=== PATIENT | female | born 1970 | race Caucasian/White ===

== ENCOUNTER 2017-02-15 20:50 | Emergency (ER) | payer OTHER, MEDICAID ==
[~2017-02-15] VITALS: Ht 175.3 cm; Wt 117.9 kg
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
[2017-02-15] MEDS ORDERED: FLEXERIL10 MG PO (22:09)
[2017-02-15] MEDS ORDERED: MOBIC15 MG PO (22:09)
[2017-02-15 22:20] VITALS: BP 146/76
--- NOTE | 2017-02-16 08:05 | RADIOLOGY REPORT PS360 ---
HIP RT 2-3V W/PELVIS IF PERFOR HISTORY: HIP PAIN ORDERING PHYSICIAN: Jaky Resendiz MD PATIENT AGE: 47 years COMPARISON: None FINDINGS: No fracture or dislocation is evident. Minimal osteoarthritic changes involving the hips.. No lytic or blastic change. Unremarkable soft tissues IMPRESSION: No acute finding
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
== END 2017-02-15 22:20 | disposition home or self-care (01) ==
LOC: ER 20:50
DX: S16.1XXA Strain of muscle, fascia and tendon at neck level, initial encounter (principal); S39.012A Strain of muscle, fascia and tendon of lower back, initial encounter; S73.101A Unspecified sprain of right hip, initial encounter; V89.2XXA Person injured in unspecified motor-vehicle accident, traffic, initial encounter

== ENCOUNTER 2017-07-12 10:05 | Emergency (ER) | payer MEDICAID ==
[~2017-07-12] VITALS: Ht 175.3 cm; Wt 131.5 kg
[~2017-07-12 10:05] MED LIST: FLEXERIL10 MG PO; MOBIC15 MG PO
[2017-07-12] MEDS ORDERED: AUGMENTIN 875-1 EACH PO (11:41)
[2017-07-12] MEDS ORDERED: TESSALON PERLE100 M1 PO (11:42)
--- NOTE | 2017-07-12 11:42 | Emergency Room Report ---
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 N Clinical Suspician of Infection? N Mental Status: 1 - Regular (Normal Baseline) Sepsis Risk:Low Sepsis Risk Have you (or family members/close friends) recently traveled outside the [place]? N If Yes, where/when: Have you had exposure to infectious disease within the past month? TB? Other? Specify: Source patient, RN notes reviewed, RN/MD Exam Limitations no limitations Comment This is a 47-year-old feel patient presented emergency room with chest wall and anterior abdominal wall discomfort after being congested for the past one week, with a nonproductive cough. She is concerned that she could have developed a hernia, as well as anterior abdominal wall hurts worse with coughing. Patient has any shortness of breath, fever, nausea, vomiting or diarrhea. Patient had ovarian cancer in the past, currently in remission. ALLERGIES Coded Allergies: codeine (07/12/17) Home Medications Active Scripts Cyclobenzaprine Hcl (Flexeril) 10 MG PO TID #15 TAB Prov: 02/15/17 Meloxicam (Mobic 15MG) 15 MG PO DAILY #10 TAB Prov: 02/15/17 History Medical History General CAD? No Angina: No [place]: No Hypertension? No Hyperlipidemia? No CHF? No DVT? No PE? No COPD? No Asthma? No Anemia? No GERD? No Gastric ulcers? No GI Bleed? No Hernia? No Thyroid Problems? No Hypothyroidism? No CVA? No Seizures? No Diabetes? No Renal Insuffiency? No End Stage Renal Disease? No UTI? No Stones? No BPH? No GB Disease: No Nephritic Syndrome? No Asplenia? No Hepatitis? No Sickle Cell Disease? No Arthritis? No Migraines? No Cataracts? No Glaucoma? No MRSA? No HIV? No TB? No Anxiety? No Depression? No Cancer? No Site: n More? 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 Physical Exam Vital Signs Vital Signs Date Time Temp Pulse Resp B/P Pulse O2 O2 Flow FiO2 Ox Delivery Rate 07/12 1145 97.9 89 20 112/72 100 07/12 1111 89 20 112/72 100 07/12 1022 97.9 67 18 129/69 98 General Appearance normal appearance, WD/WN, no apparent distress Ear, Nose, Throat hearing grossly normal, normal ENT inspection Neck normal inspection, non-tender, supple, full range of motion Respiratory Status Yes: trachea midline, chest symmetrical, non tender chest. No: respiratory distress. Lung Sounds bilateral: normal breath sounds, lungs clear. 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 No Comment Patient appears medically stable, in no acute distress, afebrile at this time. Her chest x-rays unremarkable. Advised patient to follow-up with her PCP of choice or return to emergency room if her abdominal discomfort is persistent. His also like patient does not have a current PCP at this time. I have strongly encouraged the patient to choose a PCP. Results/Orders Orders Procedure Date/time Status CHEST(2 VIEWS-NOT PORTABLE) 07/12 1028 Active XRAY/CT/US XRAY/CT/US XRAY chest XR interpretation by reviewed by me Xray Results no infiltrates, normal heart size, normal lung inflation kiko Departure Departure Time of Disposition 1139 Disposition DC Home or Self Care(routine) Clinical Impression Primary Impression: Acute bronchitis Qualifiers: Bronchitis organism: unspecified organism Qualified Code: J20.9 - Acute bronchitis, unspecified Secondary Impressions: Abdominal wall strain Qualifiers: Encounter type: initial encounter Qualified Code: S39.011A - Strain of muscle, fascia and tendon of abdomen, initial encounter Condition STABLE Referrals Astrid PEREZ,Yandel Ibarra: 2 Days-Call Office if not better Patient Instructions DI for Abdominal Muscle Strain, DI for Acute Bronchitis Additional Instructions Please follow up with your PCP of choice if not better within 2 days. Discharge Counseling Counseled pt/family regarding diagnosis, medications/RX, home care, follow up needs Comment Please follow up with your PCP of choice if not better within 2 days. Prescriptions Current Visit Scripts Amoxicillin/Potassium Clav (Augmentin 875-125 Tablet) 1 EACH PO BID #20 TAB Benzonatate (Tessalon Perle) 100 MG PO TIDP PRN cough #20 SGL ED Critical Care Critical Care No at 0919
[2017-07-12 11:45] VITALS: BP 112/72
--- NOTE | 2017-07-12 14:28 | RADIOLOGY REPORT PS360 ---
CHEST(2 VIEWS-NOT PORTABLE) HISTORY: COUGH AND CONGESTION ORDERING PHYSICIAN: Tomas Colón MD PATIENT AGE: 47 years COMPARISON: None available FINDINGS: The cardiomediastinal silhouette and pulmonary vascularity are within normal limits. The lungs are clear without infiltrates, suspicious nodules, or pleural effusions. No acute bony abnormalities. IMPRESSION: Negative chest, no acute finding
== END 2017-07-12 12:15 | disposition home or self-care (01) ==
LOC: ER 10:05
DX: J20.9 Acute bronchitis, unspecified (principal); S39.011A Strain of muscle, fascia and tendon of abdomen, initial encounter

== ENCOUNTER 2017-07-20 14:02 | Emergency (ER) | payer MEDICAID ==
[~2017-07-20] VITALS: Ht 175.3 cm; Wt 131.5 kg
[~2017-07-20 14:02] MED LIST changes: +AUGMENTIN 875-1 EACH PO; +TESSALON PERLE100 M1 PO
--- NOTE | 2017-07-20 14:28 | Emergency Room Report ---
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 N Clinical Suspician of Infection? N Mental Status: 1 - Regular (Normal Baseline) Sepsis Risk:Low Sepsis Risk Have you (or family members/close friends) recently traveled outside the [place]? N If Yes, where/when: Have you had exposure to infectious disease within the past month? N TB? Other? Specify: 47 years old white female quit smoking 6 months ago. She developed cough and congestion for the past week. Zithromax with no improvement. She continues to be symptomatic. Source patient, RN notes reviewed, family Exam Limitations no limitations ALLERGIES Coded Allergies: codeine (07/12/17) Home Medications Active Scripts Meloxicam (Mobic 15MG) 15 MG PO DAILY #10 TAB Prov: 02/15/17 Amoxicillin/Potassium Clav (Augmentin 875-125 Tablet) 1 EACH PO BID #20 TAB Prov: 07/12/17 Benzonatate (Tessalon Perle) 100 MG PO TIDP PRN cough #20 SGL Prov: 07/12/17 History Medical History General CAD? No Angina: No [place]: No Hypertension? No Hyperlipidemia? No CHF? No DVT? No PE? No COPD? No Asthma? No Anemia? No GERD? No Gastric ulcers? No GI Bleed? No Hernia? No Thyroid Problems? No Hypothyroidism? No CVA? No Seizures? No Diabetes? No Renal Insuffiency? No End Stage Renal Disease? No UTI? No Stones? No BPH? No GB Disease: No Nephritic Syndrome? No Asplenia? No Hepatitis? No Sickle Cell Disease? No Arthritis? No Migraines? No Cataracts? No Glaucoma? No MRSA? No HIV? No TB? No Anxiety? No Depression? No Cancer? No Site: n More? 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 Respiratory see HPI, cough Cardiovascular no symptoms reported Gastrointestinal no symptoms reported Genitourinary no symptoms reported. Musculoskeletal no symptoms reported Skin no symptoms reported Psychiatric/Neurological no symptoms reported Physical Exam Vital Signs Vital Signs Date Time Temp Pulse Resp B/P Pulse O2 O2 Flow FiO2 Ox Delivery Rate 07/20 1414 99.1 82 18 110/74 95 - WBC >12,000 or <4,000 or 10% bands? 2 or more SIRS Criteria Met? B/P:110/74 MAP:86 Creatinine >2.0? UA output<0.5ml/kg/hr for 2 hrs? Platelet count >100,000? Lactate >2.0mmol/1? INR >1.2 or PTT > than 60 sec? Evidence of Organ Dysfunction? Provider documented clinical suspician of infection? N Sepsis Criteria Count: 0 Sepsis Risk: Low Sepsis Risk General Appearance normal appearance, WD/WN Eye Exam - bilateral eye normal exam, bilateral eye PERRL, bilateral eye EOMI Ear, Nose, Throat hearing grossly normal, normal ENT inspection Neck normal inspection, non-tender, supple, full range of motion Respiratory Status Yes: trachea midline, chest symmetrical, non tender chest, non productive cough. No: respiratory distress. Lung Sounds right: rhonchi. Cardiovascular normal exam, regular rate/rhythm, no peripheral edema, no gallop, no JVD, no murmur, no rub, normal peripheral pulses Peripheral Pulses Pulses normal Yes Gastrointestinal normal bowel sounds, normal exam, non tender, soft, no organomegaly Back normal inspection, no CVA tenderness, no vertebral tenderness Extremities non-tender, normal range of motion, normal inspection Neurologic alert, emr specialist II-XII nml as tested, normal exam, oriented x 3 Mental status normal mood/affect Skin intact, normal color, warm/dry Medical Decision Making LABS/Meds/Orders Pt receiving controlled substance in ED? No Results/Orders Laboratory Tests 07/20/17 1435: Lactic Acid 0.6 07/20/17 1435: Sodium 140, Potassium 4.0, Chloride 105, Carbon Dioxide 28, BUN 9, Creatinine 0.9, Estimated Creat Clear 157, Estimated GFR (MDRD) 67, Glucose 100, Calcium 8.9, Total Bilirubin 0.5, AST 21, ALT 35, Alkaline Phosphatase 63, Total Protein 7.7, Albumin 3.7, Globulin 4.0 H, Albumin/Globulin Ratio 0.9 L, WBC 8.5, RBC 4.69, Hgb 14.3, Hct 43.0, MCV 91.6, RDW 13.1, Plt Count 324, MPV 7.5, Gran % 67.7, Gran # 5.8, Lymphocytes % 23.1, Monocytes % 5.8, Eosinophils % 2.8, Basophils % 0.6, Lymphocytes # 2.0, Monocytes # 0.5, Eosinophils # 0.2, Basophils # 0.1, PUBS MCHC 33.2, MCH 30.4 Current Medication Orders Sig/Rich Start time Last Medication Dose Route Stop Time Status Admin Albuterol/Ipratropium 0 .STK-MED ONE 07/20 1603 DC INH Albuterol/Ipratropium 3 ML ONCE ONE 07/20 1600 DC INH 07/20 1601 Albuterol/Ipratropium 3 ML ONCE ONE 07/20 1545 DC INH 07/20 1546 Orders Procedure Date/time Status RT REQUEST DUONEB 07/20 1551 Active RT REQUEST DUONEB 07/20 1545 Active LACTIC ACID 07/20 1429 Complete CULTURE, SPUTUM 07/20 1428 Active CULTURE, BLOOD 07/20 1428 Active CBC WITH AUTO DIFF 07/20 1428 Complete CHEM 12 PROFILE 07/20 1428 Complete XRAY/CT/US XRAY/CT/US XRAY chest XR interpretation by reviewed by me, discussed w/radiologist Xray Results no infiltrates Departure Departure Time of Disposition 1546 Disposition DC/XFER from ER to [facility] Clinical Impression Primary Impression: Reactive airway disease Secondary Impressions: Acute bronchitis, Tobacco use Condition STABLE Referrals Astrid PEREZ,Jaky Ibarra Additional Instructions THE [facility] FELT AND SOUNDED BETTER AFTER HER NEB TREATMENT, 1- STOP SMOKING. 2- START CEFTIN. 3- TESSALON PEARLS 4- COMBIVENT INHALER. 5- FOLLOW UP WITH DR CHAWLA IN AM. Discharge Counseling Counseled pt/family regarding diagnosis, R/B of controlled subst., medications/RX, home care, follow up needs Prescriptions Current Visit Scripts CEFUROXIME AXETIL (CEFTIN 250MG TAB) 250 MG PO BID #14 TAB Benzonatate (Tessalon Perle) 100 MG PO Q4HP PRN COUGH #30 SGL ALBUTEROL-IPRATROPIUM (Combivent Inhaler) 1 PUFFS IN Q12 #1 INH ED Critical Care Critical Care No If Critical Care minutes are documented, the time involved in the performance of seperately reportable procedures was not counted toward critical care time documented. I directly delivered medical care to this critically ill and/or injured patient. Timely evaluation and treatment was necessary to address the significant organ system(s) dysfunction present in this patient. at [id number]
[2017-07-20 14:51] LABS: HEMOGLOBIN 14.3 g/dL (12.2-16.2); LYMPH % 23.1 % (10-50.0)
--- NOTE | 2017-07-20 15:42 | RADIOLOGY REPORT PS360 ---
CHEST(2 VIEWS-NOT PORTABLE) HISTORY: cough with harsh bromchial breathing on the right ORDERING PHYSICIAN: Gil Smith MD PATIENT AGE: 47 years COMPARISON: 07/12/2017 FINDINGS: The cardiomediastinal silhouette and pulmonary vascularity are within normal limits. The lungs are clear without infiltrates, suspicious nodules, or pleural effusions. No acute bony abnormalities. IMPRESSION: Negative chest, no acute finding
[2017-07-20] MEDS ORDERED: ALBUTEROL-1 PUFF/14. IN (15:49)
[2017-07-20] MEDS ORDERED: CEFTIN 250MG T250 MG PO (15:49)
[2017-07-20] MEDS ORDERED: TESSALON PERLE100 M1 PO (15:49)
[2017-07-20 16:34] VITALS: BP 110/71
== END 2017-07-20 16:35 | disposition home or self-care (01) ==
LOC: ER 14:02
PROVIDERS: Emergency Medicine
DX: J20.9 Acute bronchitis, unspecified (principal); J45.909 Unspecified asthma, uncomplicated; Z87.891 Personal history of nicotine dependence

== ENCOUNTER → 2017-07-28 | Outpatient (CLI) | payer MEDICAID ==
[~2017-07-28] MED LIST changes: +ALBUTEROL-1 PUFF/14. IN; +CEFTIN 250MG T250 MG PO
[2017-07-28 17:42] LABS: HEMOGLOBIN 14.1 g/dL (12.2-16.2); LYMPH # 2.5 K/mm3 (0.7-4.5); LYMPH % 33.7 % (10-50.0)
[2017-07-28 18:41] LABS: BUN 10 mg/dL (7-18)
[2017-07-28 18:43] LABS: GFR (ESTIMATED) 76 ML/MIN (59-)
== END ==
LOC: LAB 16:13
PROVIDERS: Nurse Practitioner Family
DX: R53.83 Other fatigue (principal); E55.9 Vitamin D deficiency, unspecified

== ENCOUNTER → 2017-08-03 | Outpatient (CLI) | payer MEDICAID ==
--- NOTE | 2017-08-03 14:23 | RADIOLOGY REPORT PS360 ---
US ABD(COMPLETE-MULTI ORGANS HISTORY: ABD HERNIA ORDERING PHYSICIAN: APOLINAR PRESSLEY PATIENT AGE: 47 years COMPARISON: None FINDINGS: The patient is imaged in both the supine and upright position. The abdominal wall was evaluated at the area of concern. No obvious hernia evident. If symptoms persist, CT may be of further value. IMPRESSION: No obvious abdominal wall hernia apparent by ultrasound
--- NOTE | 2017-08-07 16:38 | RADIOLOGY REPORT PS360 ---
DIG MAMM-SCREEN MEERA W/CAD CAD Screening COMPARISON: Digital mammograms 07/01/2016 and 06/18/2015 INDICATION: There is a history of breast cancer in patient's sister diagnosed before menopause. TECHNIQUE: Standard CC and MLO images were obtained. R2 CAD reviewed. FINDINGS: Prominent somewhat heterogenic fibroglandular densities are seen in both breast primarily upper outer quadrants. There is a benign-appearing calcification right breast. There is no suspicious lesion in either breast and there are no suspicious microcalcifications. IMPRESSION: Moderate diffuse breast density with no suspicious lesion seen recommend yearly follow-up BI-RADS CATEGORY: 2_Benign RECOMMENDED FOLLOWUP: 12M 12 MONTH FOLLOW-UP (A letter has been sent to the patient regarding results of the study.)
== END ==
LOC: RAD 10:00
DX: K46.9 Unspecified abdominal hernia without obstruction or gangrene (principal)
CPT/HCPCS: G0202